=== PATIENT | male | born 1990 | race Caucasian/White ===

== ENCOUNTER 2024-04-20 22:27 | Emergency (ER) | payer BC, SELFPAY ==
[2024-04-20 22:28] VITALS: BMI 18.4
[2024-04-20 22:30] VITALS: BP 156/103
--- NOTE | 2024-04-20 23:21 | ED.GENMED ---
History of Present Illness
<MÓNICA Dixon - Last Filed: 04/20/24 23:49>
General
Chief Complaint: Musculo-Skeletal Complaint
Source: patient
Exam Limitations: none
Time Seen by Provider: 04/20/24 23:20
Nursing documentation reviewed up to this point in time: agreed with
History of Present Illness
History of Present Illness:
Patient is a 33 year old male presenting to the ED with complaints of right hand pain x 3 hours. He states he was sitting down on the floor and slammed both of his fists on the ground in a bout of stress. Both hands were swollen at the time, but he
used ice on both which reduced swelling. Left hand is asymptomatic. The pain does not radiate anywhere and he describes it as a sharp pain. It is constant with movement but asymptomatic at rest. He rates it a 6/10 on a pain scale. He denies trying
any Tylenol or ibuprofen. Patient denies any numbness tingling palpitations sob.
Patient denies any PMH and is not currently on any medication. He denies illicit drug use and tobacco use. He occasionally drinks but denies any alcohol consumption tonight.
Past History
<MÓNICA Dixon - Last Filed: 04/20/24 23:49>
Social History
Tobacco: Non-smoker
Review of Systems
<MÓNICA Dixon - Last Filed: 04/20/24 23:49>
Review of Systems
Allergies reviewed?: Yes
Constitutional: Reports no symptoms
Respiratory: Reports no symptoms
Cardiac: Reports no symptoms
Musculoskeletal: Reports muscle pain (5th metacarpal close to the MCP joint)
Neurological: Reports no symptoms
Phy Exam
<MÓNICA Dixon - Last Filed: 04/20/24 23:49>
General Physical Exam
General Presentation: well appearing
General age: appears stated age
General Habitus: normal
Cardiovascular Exam
Cardiovascular Exam: regular rate/rhythm, no edema, no gallop, no JVD and no murmur
Pulmonary Exam
Pulmonary Exam: lungs clear, no respiratory distress, no rales, chest non tender, no crackles, no rhonchi, no stridor, no wheezing and no cough
Sensory
Sensory Exam: intact (sensation intact to light touch across entire R hand wrist and forearm)
Musculoskeletal Exam
Musculoskeletal Exam: full ROM and other (Pain in 5th metacarpal with ulnar deviation and wrist flexion)
Course
<ST DestinyPA - Last Filed: 04/20/24 23:49>
Orders/Labs/Results
Orders:
Orders
04/20/24 22:29
CR Hand - Right Min 3 Views Urgent
Comment:
Reason For Exam: pain
04/20/24 23:45
Splints/Slings/Crut- Treatment ONCE
Location: Right
Type of Splint: Drifting Wrist
Vital Signs
Initial and Last Documented VS:
Initial Vital Signs
Temp Pulse Resp BP Pulse Ox
98 F 66 16 156/103 100
04/20/24 22:30 04/20/24 22:30 04/20/24 22:30 04/20/24 22:30 04/20/24 22:30
Last Documented Vital Signs
Temp Pulse Resp BP Pulse Ox
98.2 F 66 16 133/96 98
04/21/24 00:00 04/20/24 22:30 04/20/24 22:30 04/21/24 00:03 04/21/24 00:00
<Paulie Tanner DO - Last Filed: 04/21/24 00:49>
Orders/Labs/Results
Orders:
Orders
04/20/24 22:29
CR Hand - Right Min 3 Views Urgent
Comment:
Reason For Exam: pain
04/20/24 23:45
Splints/Slings/Crut- Treatment ONCE
Location: Right
Type of Splint: Drifting Wrist
Vital Signs
Initial and Last Documented VS:
Initial Vital Signs
Temp Pulse Resp BP Pulse Ox
98 F 66 16 156/103 100
04/20/24 22:30 04/20/24 22:30 04/20/24 22:30 04/20/24 22:30 04/20/24 22:30
Last Documented Vital Signs
Temp Pulse Resp BP Pulse Ox
98.2 F 66 16 133/96 98
04/21/24 00:00 04/20/24 22:30 04/20/24 22:30 04/21/24 00:03 04/21/24 00:00
<MÓNICA Dixon - Last Filed: 04/20/24 23:49>
MDM/Problems Addressed
Differential Diagnosis Includes:
Hand bruise/trauma
MDM/Problems Addressed:
XR shows no acute fracture, order brace and give pain meds
<MÓNICA Dixon - Last Filed: 04/20/24 23:49>
*Critical Care Note
Total Time (30-74mins, 75-104mins- exclusive of procedures): Not Applicable
ED Attending Note
<MÓNICA Dixon - Last Filed: 04/20/24 23:49>
-
Portions of this chart may have been created with voice recognition software.� Occasional wrong word or��sound alike� substitutions may have occurred due to the inherent limitations of voice recognition software.
<Paulie Tanner DO - Last Filed: 04/21/24 00:49>
ED Attending Note
Patient seen and examined by attending physician: Yes
I performed the substantive portion of visit, reviewed & personally made and approve the management plan that is documented in note by myself or CASE.: Yes
ED Attending Note:
This a pleasant 33-year-old male presents with right hand pain that has been present for the last 3 hours. Patient states that he was sitting on the floor at slammed both of his hands into the ground. He states that he had some swelling in both
hands but the right 1 hurts more. Denies head injury or loss of consciousness. He did not take Tylenol or ibuprofen for the pain. Denies any radiating symptoms. Patient was seen in conjunction with the PA student. I have reviewed and agree with
the history and treatment plan presented. On my independent physical exam, patient is awake, alert, and oriented x3, no acute distress. Full range of motion in the fingers. Splint is in place. Good cap refill. Skin is warm and dry
Patient will follow-up with orthopedics as needed.
Tylenol Motrin for pain
Discharge Plan
Departure
Patient Disposition: Home (Routine Discharge)
Date of Disposition: 04/21/24
Time of Disposition: 00:46
Patient with high blood pressure during this ER visit?: Yes
Discharge Problem:
Contusion of hand
Instructions: Contusion (DC), Using Cold for Pain, Splint Care
Prescriptions:
No Action
No Current Medications
Referrals:
[facility] [Provider Group]
NONE,* [Family Provider] -
Activity Restrictions/Additional Instructions:
It was a pleasure meeting you and taking part in your care. We hope for your continued healing and wellness.
Please read discharge instructions in their entirety. However, they are for general education and may not describe your exact diagnosis at discharge. Information on your ER visit and medical conditions were discussed with you along with appropriate
follow up information...
If indicated, please take your medications as instructed and indicated on discharge paperwork.
Please schedule a follow up appointment as directed. Call to schedule an appointment
Please return to the emergency department with ANY change in, persisting, or worsening of symptoms. If any of your symptoms do not improve, or persist, or become more severe within 6-12 hours, please return to the emergency department for further
care.
Please return to the emergency department if you develop a headache, neck pain/stiffness, fever greater than 100.4F, chest pain, shortness of breath, persistent nausea, vomiting, slurred speech, difficulty walking, numbness/tingling, weakness, signs
of infection or any other symptoms that are worrisome to you.
If you have any questions or concerns please do not hesitate to call the Hospital at or E-mail me directly at [email or web address]
Interventions
Interventions:
*Risk Screen - Suicide Last Done: 04/20/24 22:30
*General Assessment Last Done: 04/20/24 23:59
*Neglect/Abuse Screening Last Done: 04/20/24 23:59
*ED COVID-19 Vaccine History Last Done: 04/20/24 23:59
ED-Musculoskeletal Assessment Last Done: 04/20/24 23:59
Discharge Date and Time
Print Language: HEBREW
[2024-04-21 00:03] VITALS: BP 133/96
== END 2024-04-21 01:10 | disposition home or self-care (01) ==
LOC: EMR 22:27
PROVIDERS: EMERGENCY PHYSICIAN Student in an Organized Health Care Education/Training Program
DX: S60.221A Contusion of right hand, initial encounter (principal); W22.09XA Striking against other stationary object, initial encounter
CPT/HCPCS: 99283; 29125; 73130